=== PATIENT | male | born 1960 | race Caucasian/White ===

== ENCOUNTER 2016-11-11 11:05 | Inpatient (IN) | payer MEDICARE, OTHER ==
[~2016-11-11] VITALS: Ht 180.3 cm; Wt 76.3 kg
[2016-11-11] VITALS (7 sets, daily range): BP systolic 145–174; BP diastolic 95–114; PULSE 90–106; RESP 12–20; O2SAT 97–98
[~2016-11-11 11:05] MED LIST: HYDR1TAB; SERT25TA2; [UNRECOGNIZED DRUG - OTHER]
--- NOTE | 2016-11-11 11:05 | ED.REPORT ---
HPI-General Illness Date of Service Nov 11, 2016 ED Provider: The patient is a 56 year old male with an unknown history who was brought to the emergency department by EMS for confusion. It is unclear what time his symptoms exactly began. His roommate called EMS due to the patients mental status decline. The patient was somewhat combative at home. When medics arrived the patient had difficulty following directions and was unable to get dressed without instruction. Her states that over the last few days he has developed sores and bruises diffusely over his body. He denies any pain. His blood sugar was 153 for medics. He denies history of medical problems but he is taking medications for hypertension and hypercholesteremia. He denies using meth, heroin or any other illicit drugs. Nursing Notes Stated Complaint: CONFUSION Nursing Notes Reviewed: Yes Allergies: Coded Allergies: iodine (Verified Allergy, Unknown, 06/18/09) Scheduled Buspirone (Buspirone) 30 Mg Tablet 30 MG PO BID Citalopram (Citalopram) 40 Mg Tablet 60 MG PO DAILY Fluticasone/Salmeterol (Advair 500-50 Diskus) 1 Each Disk.w.dev 1 PUFF INHALATION BID Gabapentin (Gabapentin) 600 Mg Tablet 300-900 MG PO TID Lisinopril (Lisinopril) 20 Mg Tablet 20 MG PO HS Lovastatin (Lovastatin) 40 Mg Tablet 80 MG PO HS Metoprolol Succinate ER (Metoprolol Succinate ER) 25 Mg Tab.er.24h 25 MG PO DAILY Quetiapine Fumarate (Quetiapine Fumarate) 200 Mg Tablet 200 MG PO HS Scheduled PRN Albuterol HFA (Proair HFA) 8.5 Gm Hfa.aer.ad 1-2 PUFFS INHALATION QID PRN PRN For Shortness of Breath General Time Seen by MD: 11:05 Chief Complaint Altered mental status Hx Obtained From: Patient, EMS Arrived By: Ambulance Sudden in Onset?: Yes Onset Occurred: Onset unknown Symptom Duration: Since onset Severity: Current: No pain currently Severity: Maximum: No pain NIH Stroke Scale Level of Consciousness: Alert and responsive (0) Ask Month & Age: 0 questions right (2) Open/Close Eyes/Hand Wax Pattern Repairer: Performs both tasks (0) Horizontal EO Movements: None (0) Visual Gipson: No visual loss (0) Facial Palsy: Normal symmetry (0) Right Arm Motor Drift (10s): Drift, not touch bed (1) Left Arm Motor Drift (10s): No drift 10 sec (0) Right Leg Motor Drift (5s): No drift 5 sec (0) Left Leg Motor Drift (5s): No drift 5 sec (0) Limb Ataxia FNF/Heel-Madden: Ataxia in 1 limb (1) Sensation (Arms/Legs/Face): Pinprick less sharp (1) (less sharp on left face ) Language Aphasia: Loss fluency ID matls (1) Dysarthria: No dysarthria, normal (0) Extinction/Inattention: No exctinct/inattent (0) NIHSS Score: 6 Time NIHSS Performed: 14:17 Date NIHSS Performed: Nov 11, 2016 Past Medical History Past Medical History Hypertension Hypercholesteremia Depression Anxiety Stroke Family History Noncontributory Smoking History Current Every Day Smoker Social History Lives with a roommate Alcohol Use: In recovery Drug Use: Denies drug use Other Social History: Local resident Ambulatory Status Independent Review of Systems Full Review of Systems Skin: Reports Bruising, Reports Rash Neurologic: Reports: Confusion Psychiatric: Reports: Change mental status Complete sys rev & neg: except as marked. Physical Exam Vital Signs Vital Signs Date Time Temp Pulse Resp B/P Pulse Ox O2 Delivery O2 Flow Rate FiO2 11/11/16 13:53 106 17 152/114 98 Room Air 11/11/16 12:48 94 12 157/97 98 Room Air 11/11/16 11:07 36.6 102 19 153/113 98 Room Air Initial VS: Reviewed ENT: Mucous membranes moist, Conjunctiva normal, No scleral icterus Neck: Supple, Non-tender, Full range of motion Respiratory: Breath sounds normal, Clear to auscultation, No respiratory distress Cardiovascular: Regular rate & rhythm, Heart sounds normal, Intact distal pulses Abdomen / GI: Soft, Non-tender, No guarding, No rebound, No distention Lymphatic: No lymphadenopathy Extremities: Vascular intact, Neuro intact, No swelling, No tenderness General/Constitutional: Awake, Alert Head / Eyes: Normocephalic, PERRL, EOMI Contusion to his right upper frontal region. Skin: Warm Extensive ecchymosis on extremities, forehead, chest, and legs of varying ages. There is a lot of excoriations and eschar of variant ages. Mental Status: Positive: Disoriented to person, Disoriented to time SEE NIH STROKE SCALE ABOVE, score of 6. Interpretation & Diagnostics Interpretation & Diagnostics: Urine drug screen: positive for opiates and oxycodone Urine dip: positive for protein, ketones, bilirubin, and blood. Lab Results Interpretation Result Diagram: 11/11/16 1230 11/11/16 1230 Test 11/11/16 11:50 11/11/16 12:30 Urine Color Dark yellow (YELLOW) Urine Appearance Hazy (CLEAR,HAZY) Urine pH 6.5 (5.0-8.0) Urine Specific Hull 1.020 (1.003-1.035) Urine Protein 100mg/dL (NEG,TRACE) Urine Glucose (UA) Negativemg/dL (NEGATIVE) Urine Ketones 40mg/dL (NEGATIVE) Urine Occult Blood Large (NEGATIVE) Urine Nitrite Negative (NEGATIVE) Urine Bilirubin Negative (NEGATIVE) Urine Ictotest Negative (Negative) Urine Urobilinogen Normalmg/dL (NORMAL) Urine Leukocyte Esterase Negative (NEGATIVE) Urine RBC 0-2/hpf (0-2) Urine WBC 0-5/hpf (0-5) Urine Epithelial Cells Occasional/hpf (NONE-MOD) Urine Crystals None seen (NONE SEEN) Urine Bacteria None/hpf (NONE-FEW) Urine Hyaline Casts Occasional/lpf (NONE) Urine Granular Casts Occasional (NONE SEEN) Urine Waxy Casts None seen (NONE SEEN) Urine Red Blood Cell Casts None seen (NONE SEEN) Urine White Blood Cell Casts None seen (NONE SEEN) Urine Mucus Present (None Seen) Urine Trichomonas None seen (NONE SEEN) Urine Yeast None (NONE SEEN) Urinalysis Comment None Urine Culture Reflexed Not indicated White Blood Count 15.8th/mm3 (3.8-10.1) Red Blood Count 4.51mil/mm3 (4.40-5.80) Hemoglobin 13.5g/dL (13.8-17.2) Hematocrit 39.7% (41.0-50.0) Mean Corpuscular Volume 88.0fL (81-100) Mean Corpuscular Hemoglobin 29.9pg (27.0-35.0) Mean Corpuscular Hemoglobin Concent 34.0% (32.0-37.0) Red Cell Distribution Width 14.0% (12.3-15.4) Platelet Count 292bil/L (150-400) Neutrophils (%) (Auto) 82.9% (40-74) Lymphocytes (%) (Auto) 8.2% (14-46) Monocytes (%) (Auto) 8.4% (4-12) Eosinophils (%) (Auto) 0% (0-5) Basophils (%) (Auto) 0.1% (0-3) Prothrombin Time 11.9sec (8.1-12.5) Prothromb Time International Ratio 1.11ratio Sodium Level 140mEq/L (134-144) Potassium Level 4.1mEq/L (3.5-5.2) Chloride Level 97mEq/L (97-108) Carbon Dioxide Level 22mmol/L (18-29) Blood Urea Nitrogen 58mg/dL (6-24) Creatinine 1.14mg/dL (0.76-1.27) Estimat Glomerular Filtration Rate 70mL/min (>59) Glucose Level 121mg/dL (60-99) Lactic Acid Level 1.6mmol/L (0.4-2.0) Calcium Level 9.7mg/dL (8.5-10.1) Magnesium Level 2.6mg/dL (1.6-2.6) Total Bilirubin 0.9mg/dL (0.0-1.2) Aspartate Amino Transf (AST/SGOT) 281U/L (0-50) Alanine Aminotransferase (ALT/SGPT) 386U/L (0-44) Alkaline Phosphatase 100U/L (25-150) Total Protein 7.9g/dL (6.4-8.4) Albumin 4.3g/dL (3.4-5.0) Salicylates Level < 3.0ug/mL (30-250) Acetaminophen Level < 15.0ug/mL Rx (10-25) Alcohols < 10mg/dL (0-10) ECG Interpretation ECG Interpretation: Sinus rhythm with a rate of 97 Nonspecific T abnormalities, anterior leads Time: 11:15 Interpreted by: ED physician X-Ray Chest Interpretation Chest Xray Interpretation: IMPRESSION: Right upper lobe pulmonary nodule. Recommend noncontrast chest CT scan when clinically feasible. Dictated by: Sai Vines RRA Interpreted: Sana العلي MD on 11/11/2016 at 11:54 Interpretation / Wet Read by: Interpret - Radiologist CT Head Interpretation IMPRESSION: 1. New subacute left frontal and right temporoparietal lobe infarcts. No change in chronic left occipital lobe infarct. 2. No acute intracranial abnormality. Dictated by: Xin Crouch M.D. on 11/11/2016 at 11:33 Study: Head CT no contrast Interpretation / Wet Read by: Interpret - ED physician Re-Eval/Medical Decision Med Decision/Clinical Course I considered TPA on this patient but did not think that he is a reasonable candidate because of the fact that we have no sense at all when the onset of his condition was and we have a CT scan that shows a subacute infarct which implies at least many hours if not days since the infarct. He also has multiple contusions all throughout his body in varying stages of healing so underlying trauma is not completely excluded either. Additionally, I do not think that stroke is necessarily the only thing at play here. I think further evaluation will be required to elucidate the complete diagnosis. I do not think it is appropriate to administer TPA in this gentleman Source of Hx: Old records, EMS Time of Eval: 13:00 Re-Evaluation/Progress Note: Discussed plan for admission. Time of Eval: 13:40 Re-Evaluation/Progress Note: Hospitalist is at bedside examining the patient. Time of Eval: 14:16 Re-Evaluation/Progress Note: Rechecked the patient. Consultation : Referral / Consult Name: Rafaela Resendiz DO Consulted With: Hospitalist Call Returned at: 14:28 Animal Stunner: Will see patient, Agrees with eval, Agrees with plan, Accepts admit Counseled Regarding: Diagnosis, Lab results, Need for admission Discharge & Departure Primary Impression: Altered mental status Altered mental status type: unspecified Qualified Code: R41.82 - Altered mental status, unspecified Additional Impression: CVA (cerebral vascular accident) CVA mechanism: unspecified Qualified Code: I63.9 - Cerebral infarction, unspecified Disposition: ADMITTED TO HOSPITAL Discharge Condition All VS Reviewed: Yes Condition: Stable Referrals: Shane Gomez MD (PCP) Barrettibtheodore Attestation Portions of this note were transcribed by Gale Patel. I, Dr. Sauer personally performed the history, physical exam and medical decision-making; I reviewed and confirmed the accuracy of the information in the transcribed note. Signed by: Kannan Santos, 11/11/2016 at 1431. copies to: Shane Gomez MD, Kirk H MD Nov 11, 2016 11:05 Gale Patel Nov 11, 2016 11:12
--- NOTE | 2016-11-11 11:40 | DRSVH ---
PROCEDURE: CT BRAIN WITHOUT CONTRAST ([id number]) INDICATIONS: altered LOC TECHNIQUE: Noncontrast 4.5 mm thick angled axial sections acquired from the foramen magnum to the vertex, with c oronal reformats. COMPARISON: [facility], CT, BRAIN W/O CONTRAST, 06/14/2009, 15:16. [facility] [place], CT, BRAIN W/O CONTRAST, 03/25/2008, 9:19. [facility], MR, BRAIN W/O CONTRAST, 04/06/20 14, 15:32. FINDINGS: Image quality: Degraded by motion artifact CSF spaces: Basal cisterns are patent. No extra-axial fluid collections. The ventricles are symmet beth in size and shape. Brain: No intracranial bleeds or masses. There is a 40 mm diameter low-density focus within the lef t posterolateral frontal lobe. Within the right temporoparietal lobe, there is a 60 mm diameter low-d ensity focus. No change in chronic small infarct within the left medial occipital lobe. There is cere bral volume loss for age, with resultant ventricular and sulcal prominence. There are periventricula r and deep white matter chronic small vessel ischemic changes. There is intracranial internal caroti d artery atherosclerosis. Skull and face: Calvarium and visualized facial bones appear intact, without suspicious lesions. Sinuses: Visualized sinuses and mastoids are clear. IMPRESSION: 1. New subacute left frontal and right temporoparietal lobe infarcts. No change in chronic left occip ital lobe infarct. 2. No acute intracranial abnormality. Dictated by: Xin Crouch M.D. on 11/11/2016 at 11:33 Approved by: Xin Crouch M.D. on 11/11/2016 at 11:39
--- NOTE | 2016-11-11 11:55 | DRSVH ---
PROCEDURE: X-RAY CHEST ONE VIEW, PORTABLE ([id number]) INDICATIONS: dec LOC TECHNIQUE: One view of the chest was acquired. COMPARISON: [facility], CR, XR CHEST 2V AP/PA AND LAT, 04/23/2016, 12:54 PM. FINDINGS: Surgical changes and devices: None. Lungs and pleura: 2.5 cm right upper lobe nodule is present otherwise lungs are clear. Mediastinum: Mediastinal contours appear normal. Heart size is normal. Bones and chest wall: No suspicious bony lesions. Overlying soft tissues appear unremarkable. IMPRESSION: Right upper lobe pulmonary nodule. Recommend noncontrast chest CT scan when clinically f easible. Dictated by: Sai Vines RRA Interpreted: Sana العلي MD on 11/11/2016 at 11:54 Transcribed by: RAD on 11/11/2016 at 11:55 Approved by: Sana العلي MD, PhD on 11/11/2016 at 16:14
[2016-11-11 12:05] LABS: APPEARANCE,URINE HAZY (CLEAR,HAZY); COLOR,URINE DARK YELLOW (YELLOW); OCCULT BLOOD,URINE LARGE (NEGATIVE); PH,URINE 6.5 (5.0-8.0)
[2016-11-11 12:06] LABS: UROBILINOGEN,URINE NORMAL (NORMAL)
[2016-11-11 12:15] LABS: ICTOTEST,URINE NEGATIVE (Negative)
[2016-11-11 12:46] LABS: BASOPHILS % (AUTO) 0.1 % (0-3); EOSINOPHILS % (AUTO) 0 % (0-5); MONOCYTES % (AUTO) 8.4 % (4-12); Mean Corpuscular Hemoglobin 29.9 pg (27.0-35.0); NEUTROPHILS % (AUTO) 82.9 % (40-74); Platelet Count 292 bil/L (150-400)
[2016-11-11 13:00] LABS: INR 1.11 ratio
[2016-11-11 13:23] LABS: Magnesium 2.6 mg/dL (1.6-2.6)
[2016-11-11] MEDS ORDERED: BUSP30TA2 PO (14:08)
[2016-11-11] MEDS ORDERED: LISI-567 PO (14:08)
[2016-11-11] MEDS ORDERED: GABA600T2 PO (14:08)
[2016-11-11] MEDS ORDERED: FLUT1DIS5 INHALATION (14:08)
[2016-11-11] MEDS ORDERED: METO25TA99 PO (14:08)
[2016-11-11] MEDS ORDERED: QUET200T58 PO (14:08)
[2016-11-11] MEDS ORDERED: LOVA40TA PO (14:08)
[2016-11-11] MEDS ORDERED: CITA40TA13 PO (14:08)
[2016-11-11] MEDS ORDERED: ALBU8.5H2 INHALATION (14:08)
[2016-11-11] MEDS ORDERED: 0.9% Sodium Chloride 1,000 ML IV SCH (14:23)
[2016-11-11] MEDS ORDERED: Polyethylene Glycol (PEG) 17 Gm Powder PO PRN (14:25)
[2016-11-11] MEDS ORDERED: Alum-Mag Hydrox-Simeth 30 mL Suspension PO PRN (14:25)
[2016-11-11] MEDS ORDERED: Albuterol HFA 60 Puff 8 Gm Inhaler INHALATION PRN (14:35)
--- NOTE | 2016-11-11 14:42 | PCM.HPMED ---
Subjective Date of Service Nov 11, 2016 Primary Provider: Admitting Physician: Rafaela Resendiz DO Primary Care Physician: Shane Gomez MD Attending Physician: Rafaela Resendiz DO Chief Complaint: Confusion, falls History of Present Illness: The patient is a 56 year old male with past medical history of hypertension, hyperlipidemia, arthritis, previous CVA, chronic pain syndrome, COPD who was brought to the emergency department by EMS for confusion. It is unclear what time his symptoms exactly began. His roommate called EMS due to the patients mental status decline. The patient was somewhat combative at home. EMS also had difficulty with his friend not letting them come in. When medics arrived the patient had difficulty following directions and was unable to get dressed without instruction. Her states that over the last few days he has developed sores and bruises diffusely over his body. He denies any pain. His blood sugar was 153 for medics. He denies history of medical problems but he is taking medications for hypertension and hypercholesteremia. He denies using meth, heroin or any other illicit drugs. He does admit to taking a xanax pill he received from a friend. States it made him feel strange. Patient states his roommate and friend does smoke marijuana. In the ER chest x-ray showed right upper lobe pulmonary nodule. CT of head showed right frontal and right temporal subacute infarcts and an older chronic left occipital lesion. Urine drug screen showed benzo, opiates. I will call serum levels were within normal limits. Serum cell cycle 8, Tylenol were within normal. Urine dip stick is positive for protein, ketones, bilirubin, and blood. His white count was elevated at 15.8 AST 21 ALP 386. PUD and sharply elevated at 38 creatinine is 1.14. In the room patient is acting mildly agitated, and at times confused. It is unknown what his baseline is like. He has several scratch huggins all over his body. Healing ecchymosis on both anterior tibia. He is able to talk but at times stuttering speech. He appears to be having difficulty recalling names, dates. He also appeared to be frustrated with his inability to find words at times. He states he has not eaten in a couple of days and also has not taken his home meds and a couple of days. She thinks the reason he is following up with Xanax he took 2 weeks ago. He also has AT home that includes 3 bulldogs and 1 cat scratch at them for patient. He is disabled and . Patient is admitted to the [facility] team for management of acute stroke likely cardioembolic that he is past TPA due to unknown onset. Review of Systems: The review of systems is negative for urinary symptoms, GI symptoms, dyspnea, chest pain, fevers and chills. All other review of symptoms negative except as stated in history of present illness. Allergies Coded Allergies: iodine (Verified Allergy, Unknown, 06/18/09) Home Medications Home medications include lisinopril, metoprolol, lovastatin, citalopram, BuSpar , gabapentin, Advair, pro-air PMH CAD, hyperlipidemia, hypertension, seizures, DJD, brain lesion, CVA, tobacco abuse Surgical History Patient denies ever having any surgical procedures. Family History Pertinent for dad and mom both in good health. However patient is not a good historian. Social History Occupation: disabled Hx Alcohol Use: No Hx Substance Use: No Hx Tobacco Use: Yes Smoking Status: Current Every Day Smoker (Objective today) Living Arrangement: with Friends/Roommate Spiritual Support Unknown Exam Vital Signs Vital Sign - Last Date Time Temp Pulse Resp B/P Pulse Ox O2 Delivery O2 Flow Rate FiO2 11/11/16 13:53 106 17 152/114 98 Room Air 11/11/16 11:07 36.6 Exam Gen.: Patient appears mildly agitated but following commands. HEENT: Pupils are equal equal and reactive to light, full dentition Neck: Trachea is central no JVD Heart: Regular rate and rhythm no S3-S4 murmurs Lungs mild wheezing is noted Abdomen: Nontender nondistended bowel sounds are present Skin: Multiple areas of erythema and scratches non-purulent, 2 large areas of recent injuries that are in healing stages over anterior tibia bilaterally. He appears to have some folliculitis on the back as well Neuro: Hyperreflexia in both patellar tendons, patient is unable to do Romberg's , assigz-ng-[id number]. Babinski's downgoing, CN II through 12 are otherwise unremarkable. MSK: Decreased strength in upper right extremity Psych: Positive for mild anxiety as above Lab and Diagnostics Result Diagram: 11/11/16 1230 11/11/16 1230 X-Rays, CTs and MRIs Chest Xray Interpretation: IMPRESSION: Right upper lobe pulmonary nodule. Recommend noncontrast chest CT scan when clinically feasible. Dictated by: Sai Vines RRA Interpreted: Sana العلي MD on 11/11/2016 at 11:54 Interpretation / Wet Read by: Interpret - Radiologist CT Head Interpretation IMPRESSION: 1. New subacute left frontal and right temporoparietal lobe infarcts. No change in chronic left occipital lobe infarct. 2. No acute intracranial abnormality. Dictated by: Xin Crouch M.D. on 11/11/2016 at 11:33 Study: Head CT no contrast Interpretation / Wet Read by: Interpret - ED physician Assessment & Plan This is a 56-year-old gentleman with past medical history of CAD, hypertension, hyperlipidemia, seizures, previous CVA admitted due to concern for subacute stroke. Assessment #1 Subacute stroke: As evidenced by CT scan in the ER. Unknown duration of onset felt to be passed TPA. The plan to obtain every 4 hours neuro checks, fall precautions Echocardiogram, carotid ultrasound, MRA stroke protocol will be done with and without cardiology is consulted and they will see the patient: We appreciate the recommendations. [facility] neuro is contacted regarding the patient and they felt they do not have much else to add except that we should Have cardiology in the loop in case TTE does not show any evidence of emboli and patient needs a LUDA as his stroke presentation his right and left(may likely be cardioembolic. Rectal aspirin suppository until patient is cleared by speech and swallow evaluation Nothing by mouth diet D5 half normal saline running at 100 mL per hour We will plan to do very conservative hydralazine 10 mg every 6 hours when necessary with parameters of SBP less than or equal to 100 PT/OT/speech therapy Social work consult Chronic problems: Hypertension: We will hold by mouth medications until speech clears him. Hydralazine as above. May consider labetalol if his heart rate continues to support it. CAD: Lipid panel is ordered, he is already on lisinopril, metoprolol, lovastatin at home. He is unknown if he was ever on aspirin. Agitation: This may be due to his stroke R it could be some psychiatric history. We will review his records once we receive them. Disposition: Patient will be evaluated by physical therapy, speech therapy tomorrow a.m. plan to follow the recommendations as well as cardiology studies further decide a plan for his discharge. GI Prophylaxis: Proton Pump Inhibitor VTE Prophylaxis Indicated: Contraindicated VTE Prophylaxis: SCDs Resuscitation Status: CPR: Attempt Resuscitation Rafaela Resendiz DO Nov 11, 2016 14:42
[2016-11-11] MEDS ORDERED: hydrALAZINE 20 mg/mL Inj IV PRN (14:45)
[2016-11-11] MEDS: Albuterol 2.5 mg/3 mL Inhalation Solution NEB SCH ×3 (14:53→20:00)
[2016-11-11] MEDS ORDERED: OXYC-474 PO (15:02)
--- NOTE | 2016-11-11 15:05 | NUR ---
Report from ER Received report from PORT SURVEYORBHARGAVI Nelson.
--- NOTE | 2016-11-11 15:40 | NUR ---
Arrival to Floor Patient arrived to room via wheelchair from ER, was able to stand and walk to bed, oriented to room.
[2016-11-11] MEDS ORDERED: Heparin 5,000 Unit/mL Inj SUBQ SCH (16:30)
--- NOTE | 2016-11-11 17:15 | NUR ---
Order Clarification Contacted Dr. Resendiz with the following cook page: Need order clarification on IVF, you have ordered NS and also D5 1/2 NS, please advise on which to run. Also, is Aspirin suppository still needed, as it appears MRI was cancelled. Please advise. Thank you. Lily DELGADO ext [phone]
[2016-11-11] MEDS: Dextrose 5% 0.45% NaCl 1,000 ML IV SCH (17:46)
--- NOTE | 2016-11-11 17:55 | NUR ---
Transfer to US/MRI Patient now off unit, transferred to US and then to MRI.
--- NOTE | 2016-11-11 19:00 | NUR ---
MRI returned MRI per report unable to tolerate lying still unsuccessful
--- NOTE | 2016-11-11 19:14 | DRSVH ---
PROCEDURE: US BILATERAL DUPLEX DOPPLER IMAGING OF THE CAROTIDS ([id number]) INDICATIONS: stroke symptoms TECHNIQUE: Color and pulse Doppler interrogation was performed of both carotid systems, with image documentation and velocity measurements. COMPARISON: None. FINDINGS: All stenosis calculations are based on NASCET criteria. Right side: Brachial blood pressure: 157/97 mm Hg. Common carotid artery peak systolic velocity: 82 cm/sec. Internal carotid artery peak systolic velocity: 74 cm/sec. Internal carotid artery end diastolic velocity: 23 cm/sec. External carotid artery peak systolic velocity: 126 cm/sec. ICA/CCA peak systolic ratio: 0.90. Chowdhury scale imaging description: Scattered calcified plaque Percent internal carotid artery stenosis: Less than 50%. Vertebral artery: Flow direction is antegrade. Left side: Brachial blood pressure: 154/100 mm Hg. Common carotid artery peak systolic velocity: 86 cm/sec. Internal carotid artery peak systolic velocity: 72 cm/sec. Internal carotid artery end diastolic velocity: 27 cm/sec. External carotid artery peak systolic velocity: 175 cm/sec. ICA/CCA peak systolic ratio: 0.83. Chowdhury scale imaging description: Calcific plaque at the bifurcation Percent internal carotid artery stenosis: Less than 50%. Vertebral artery: Flow direction is antegrade. IMPRESSION: Bilateral less than 50% ICA stenoses. Dictated by: Ishan Patel M.D. on 11/11/2016 at 19:12 Approved by: Ishan Patel M.D. on 11/11/2016 at 19:13
--- NOTE | 2016-11-11 19:24 | NUR ---
DIET/Waiver Patient very anxious and adamant about having something to drink, " or Im leaving" performed swallow screen which he passed but insists i=on thin liquid so he signed waiver to have diet against advice d/t severe ataxia and peripheral vision problems had second RN witness attempted signature placed in chart
[2016-11-11] MEDS ORDERED: Fluticasone-Salmeterol 500-50 Inhaler INHALATION SCH (20:30)
[2016-11-11 20:35] LABS: TROPONIN T 0.433 ug/L (0.0-0.011)
[2016-11-12] VITALS (12 sets, daily range): BP systolic 129–185; BP diastolic 86–101; PULSE 83–99; RESP 14–24; O2SAT 94–99
[2016-11-12 01:24] LABS: TROPONIN T 0.481 ug/L (0.0-0.011)
--- NOTE | 2016-11-12 01:30 | NUR ---
Critical Labs Patients CKMB slightly decreased but trop continue to rise No c/o any pain issues, MD notified aware wctm
--- NOTE | 2016-11-12 01:32 | PCM.PNMED ---
Subjective Date of Service Nov 12, 2016 Subjective Nurse call to reported elevated troponin. Patient continues to deny any angina or equivalent compliant. Recommend to nurse to report if patient develops any symptoms and will consider starting Heparin Estuardo Hennessy MD Nov 12, 2016 01:32
[2016-11-12] MEDS: Dextrose 5% 0.45% NaCl 1,000 ML IV SCH (03:47)
[2016-11-12] MEDS: Ondansetron 2 mg/mL 2 mL Inj IVPUSH PRN ×2 (05:33→07:31)
[2016-11-12] MEDS: Albuterol 2.5 mg/3 mL Inhalation Solution NEB SCH ×4 (06:26→20:00)
[2016-11-12] MEDS: Pantoprazole 4 mg/mL 10 mL Inj IVPUSH SCH (07:31)
--- NOTE | 2016-11-12 08:28 | NUR ---
Home Meds/PO Dr. Resendiz at bedside, she stated after speech therapy assesses the patient she would like to resume patient's home meds and also stated it would be ok to change aspirin suppository to PO if PO is recommended by speech. Dr. Resendiz also stated she would like to try the MRI again today and would prescribe something for patient to take prior to the MRI in order to remain calm and relaxed for the MRI. I attempted to contact speech therapy to find out where patient may be on their schedule, but was only able to leave a message at this time.
[2016-11-12] MEDS ORDERED: Acetaminophen IV 1,000 MG in IV Premix 1 EACH IV ONE (08:35)
--- NOTE | 2016-11-12 08:56 | NUR ---
Evaluation completed. Please go to "Notes" then click on "Assessments and Notes" (bottom left corner of screen). Then select appropriate discipline tab on top of screen.
[2016-11-12] MEDS: 0.9% Sodium Chloride 1,000 ML IV SCH ×2 (09:28→20:13)
[2016-11-12] MEDS: Codeine-APAP 30-300 mg Tablet PO PRN ×2 (09:28→20:21)
[2016-11-12 09:34] LABS: BASOPHILS % (AUTO) 0.2 % (0-3); EOSINOPHILS % (AUTO) 0.3 % (0-5); MONOCYTES % (AUTO) 7.2 % (4-12); Mean Corpuscular Volume 87.6 fL (81-100); NEUTROPHILS % (AUTO) 79.1 % (40-74); Platelet Count 257 bil/L (150-400)
--- NOTE | 2016-11-12 09:54 | PCM.PNMED ---
Subjective Date of Service Nov 12, 2016 Subjective Patient is seen and examined. He signed a waiver last night and started drinking fluids per staff. He was too agitated for the MRI stroke protocol last night and thus, has not finished it. He appears less agitated today. He is more lucid and having less trouble recalling names. He c/o back pain. Exam Vital Signs Vital Sign - Last Date Time Temp Pulse Resp B/P Pulse Ox O2 Delivery O2 Flow Rate FiO2 11/12/16 08:30 92 11/12/16 06:27 24 94 Room Air 11/12/16 05:25 36.4 129/86 Intake and Output 11/11/16 11/11/16 11/12/16 Cumulative From/Thru 15:00 23:00 07:00 11/11/16 11:07 - 11/12/16 06:12 Intake Total 158 ml 2386 ml 2544 ml Output Total 275 ml 400 ml 675 ml Balance -117 ml 1986 ml 1869 ml Intake Oral 0 ml 1320 ml 1320 ml IV Total 158 ml 1066 ml 1224 ml Output Urine Total 275 ml 400 ml 675 ml # Voids 3 2 5 # Bowel Movements 3 0 3 Exam General: Mildly distressed HEENT: Poor dentition Heart: RRR, no s3/s4 sounds Lungs: Wheezing noted over lung lobes Abdomen: Flat, nontender Extremities: Without edema Neurological: Patient still has trouble doing yefnqg-mk-lkdg test however he did say he does not know where his eyeglasses were. Better name/location recalled today. Babinski's is still within normal. Hyperreflexia in both patellar tendons. His vision is affected as before but otherwise CN II through XII are grossly normal. Musculoskeletal: Strength in right upper extremity is reduced. Psych: Mild agitation noted, patient is redirectable however IVs and Medications Medications Reviewed: Medications were reviewed in detail Lab and Diagnostics Result Diagram: 11/12/16 0855 11/11/16 1230 X-Rays, CTs and MRIs Chest Xray Interpretation: IMPRESSION: Right upper lobe pulmonary nodule. Recommend noncontrast chest CT scan when clinically feasible. Dictated by: Sai RODRIGUEZ Interpreted: Sana العلي MD on 11/11/2016 at 11:54 Interpretation / Wet Read by: Interpret - Radiologist CT Head Interpretation IMPRESSION: 1. New subacute left frontal and right temporoparietal lobe infarcts. No change in chronic left occipital lobe infarct. 2. No acute intracranial abnormality. Dictated by: Xin Crouch M.D. on 11/11/2016 at 11:33 Study: Head CT no contrast Interpretation / Wet Read by: Interpret - ED physician Cardiac Echo Impressions [facility] [place] [address] Patient Name: RAJ OSEGUERA MR#: [id number] Location: [facility] [place] Ordering Phys: Rafaela Resendiz DO Date of Service: 11/12/16 1446 [facility] [address] [place] [address] Echocardiogram Report Name: RAJ OSEGUERA WStudy Date: 11/12/2016 Height: 71 in Hospital Exam Location: [facility] Weight: 168 lb Gender: Male BSA: 2.0 m2 : 1960 Age: 56 yrs BP: 129/86 mmHg Reason For Study: STROKE Ordering Physician: HOSPITALIST SVHPerformed By: Tracey Vazquez Referring Physician: Dr. Shane Gomez Interpretation Summary The left ventricle is normal in size. Left ventricular systolic function is normal without focal wall motion abnormalities. The ejection fraction is estimated to be 60-65%. Assessment of diastolic parameters indicates a relaxation abnormality of the left ventricle, consistent with normal filling pressures. The right ventricle is normal in size and function. Pulmonary artery pressures cannot be estimated because of the lack of a measurable TR jet velocity. Both atria are normal in size. Injection of contrast documented an interatrial shunt. There is mild to moderate mitral regurgitation. There is mild to moderate aortic regurgitation. There is no other significant valvular heart disease. The aortic root is mildly dilated. Procedure: A two-dimensional transthoracic echocardiogram with color flow and Doppler was performed. The study quality was technically adequate. Comparison is made with the echocardiogram of 10-15-2008. Bubble study is performed. The patient was in normal sinus rhythm during the exam. Left Ventricle: The left ventricle is normal in size. There is mild concentric left ventricular hypertrophy. Left ventricular systolic function is normal without focal wall motion abnormalities. The ejection fraction is estimated to be 60-65%. Assessment of diastolic parameters indicates a relaxation abnormality of the left ventricle, consistent with normal filling pressures. Right Ventricle: The right ventricle is normal in size and function. Atria: Both atria are normal in size. Injection of contrast documented an interatrial shunt. Mitral Valve: The mitral valve leaflets appear normal. There is no evidence of stenosis, fluttering, or prolapse. There is mild to moderate mitral regurgitation. Aortic Valve: The aortic valve is not well visualized. The aortic valve opens well. There is mild to moderate aortic regurgitation. Tricuspid Valve: The tricuspid valve leaflets are thin and pliable. There is a trace or physiologic amount of tricuspid regurgitation. Pulmonary artery pressures cannot be estimated because of the lack of a measurable TR jet velocity. Pulmonic Valve: The pulmonic valve is not well visualized. There is no pulmonic valvular regurgitation. There is no other significant valvular heart disease. Great Vessels: The aortic root is mildly dilated. The ascending aorta could not be visualized. The pulmonary is not well visualized. The IVC is of normal diameter and collapses greater than 50% with a sniff. This suggests a low right atrial pressure of 3 mm Hg. Pericardium/ Pleura There is no pericardial effusion. There is no pleural effusion. MMode/2D Measurements & Calculations LVIDd: 4.7 cm LA dimension: 3.0 cm RA long axis LVOT diam: 2.1 cm LVIDs: 3.2 cm AoV Opening FS: 30.7 % LA A2 area: 19.3 cm RA area IVSd: 0.96 cm LA A4 area: 17.6 cm Ao root diam LVPWd: 1.1 cm LA length (vol) : 17.4 cm RA vol Ao Arch Diam (Prox LA vol: 55.4 ml : 50.4 ml Trans): 2.9 cm LA vol index RA : 25.7 mm/ RVDd major IVC diam: 1.9 cm : 7.9 cm LV lee. diameter/BSA LV sys. diameter/BSA RVD2 (mid) (cm/m^2): 2.4 (cm/m^2): 1.7 : 2.6 cm Doppler Measurements & Calculations Ao V2 max MV E max morales MV E/A: 0.87 PA V2 max : 130.2 cm/sec : 53.4 cm/sec Med Peak E' Morales : 85.5 cm/sec Ao max P.8 mmHgMV A max morales PA mean PG Ao mean PG : 61.4 cm/sec E/E' med: 7.2 MV P1/2t: 95.3 msec Lat Peak E' Morales PA Accel Time LVOT Max Morales MR ERO: 0.14 cm2 : 0.11 sec : 95.4 cm/sec E/E' lat: 5.0 RODERICK(I,D): 2.9 cm E/e' average: 6.1 sev ratio: 0.88 Pulm A Revs Dur AI P1/2t : 378.9 msec MV A dur: 0.12 sec AI dec slope : 370.2 cm/s2c MV P1/2t max morales Ao V2 mean LV V1 max PG MR flow rate : 90.7 cm/sec : 82.6 cm3/sec MVA(P1/2t): 2.3 cm2Ao V2 VTI: 18.8 cm LV V1 VTI: 16.5 cm MR PISA radius RODERICK(V,D): 2.4 cm2 PA V2 mean RODERICK indexed to BSA Pulm A Revs Dur - MV : 53.3 cm/sec (cm^2/m^2): 1.5 A Dur: 0.00 msec Reading Physician:PM Assessment & Plan This is a 56-year-old gentleman with past medical history of CAD, hypertension, hyperlipidemia, seizures, previous CVA admitted due to concern for subacute stroke. Assessment #1 Subacute stroke: As evidenced by CT scan in the ER. Unknown duration of onset felt to be passed TPA. --The plan to obtain every 4 hours neuro checks, fall precautions -- Echocardiogram did not reveal acute findings , carotid ultrasound showed less than 50% stenosis, MRA stroke protocol will be attempted again today. -- cardiology is consulted and they will see the patient: We appreciate the recommendations. -- [facility] neuro is contacted regarding the patient and they felt they do not have much else to add except that we should Have cardiology in the loop in case TTE does not show any evidence of emboli and patient needs a LUDA as his stroke presentation his right and left(may likely be cardioembolic. -- Patient is advanced to some PO medications today as he passed the swallow test -- Diet is advanced today -- Normal saline 70 mL/h -- We will plan to do very conservative hydralazine 10 mg every 6 hours when necessary with parameters of SBP less than or equal to 100 -- PT/OT/speech therapy -- Social work consult -- Daily aspirin by mouth 325 mg Chronic problems: Hypertension: We will hold by mouth medications until speech clears him. Hydralazine as above. May consider labetalol if his heart rate continues to support it. Plan to restart metoprolol tomorrow CAD: Lipid panel is ordered, he is already on lisinopril, metoprolol, lovastatin at home. He is unknown if he was ever on aspirin. Restart lovastatin. Plan to restart metoprolol tomorrow. Agitation: This may be due to his stroke R it could be some psychiatric history. We will review his records once we receive them. Depression: Restart citalopram today. Disposition: Patient will be evaluated by physical therapy, speech therapy tomorrow a.m. plan to follow the recommendations as well as cardiology studies further decide a plan for his discharge. GI Prophylaxis: Proton Pump Inhibitor VTE Prophylaxis: SCDs VTE Mechanical Devices: Intermittant Pneumatic CD Resuscitation Status: CPR: Attempt Resuscitation Rafaela Resendiz DO Nov 12, 2016 09:54
--- NOTE | 2016-11-12 10:30 | NUR ---
Morning Rounds Staffed patient's case with case management and social work. MD not present at this time. Was informed patient's status will likely change from observation to inpatient, no plan for discharge at this time.
[2016-11-12 10:37] LABS: TROPONIN T 0.38 ug/L (0.0-0.011)
--- NOTE | 2016-11-12 10:38 | NUR ---
Critical Labs Received call from lab, was informed of critical lab values of CKMB 16.2 and Troponin 0.380. Both of these values are less than when MD contacted previously for critical so MD was not paged again.
--- NOTE | 2016-11-12 11:04 | NUR ---
Increased Pain Contacted Dr. Resendiz with the following cook page: Patient is complaining of increased back pain, reports 10/, Tylenol 3 already given. Please advise. Thank you. Lily DELGADO
--- NOTE | 2016-11-12 12:09 | NUR ---
MRI/ECHO follow up Spoke with ECHO staff, stated patient is on their schedule and the test should be done this afternoon. Spoke with MRI staff, was told there is not an order for MRI on this patient, stated a new order needs to be put in by the MD.
--- NOTE | 2016-11-12 12:12 | NUR ---
Order for MRI Contacted Dr. Resendiz with the following jeff page: Called MRI to find schedule for patient, but was told they do not have an order for an MRI, stated a new order for an MRI needs to be placed by . Thanks you. Lily DELGADO
--- NOTE | 2016-11-12 12:34 | NUR ---
Case Management: IMM given and explained to pt at bedside at 12:25. Pt unable to sign (having problems holding pen), noted on original IMM. Original placed on hard chart, pt given copy. YUMI Echeverria RN
--- NOTE | 2016-11-12 13:27 | NUR ---
Social Work: Initial Assessment D: Per EMR review, pt is a 56 year old male admitted for Stroke. Pt is [employer] with no LTC insurance or VA benefits. PCP is Shane Gomez MD. NOK is Gordon Negron, father, [phone]. Advanced directives information declined by pt. Readmit score is moderate, 5/8. FINANCIAL SERVICES AUDITOR met with pt at bedside. Sw role explained and contact info provided. See initial assessment. Pt lives in [place], [facility]. He is I with ADLs at baseline and uses no DME. Pt continues to drive and states he has never had HH or skilled rehab. Pt expresses no concerns about discharge home and has been ambulating I during admission. Pt states his uncle will transport him home when ready. A: Pt who is I at baseline. P: Anticipate pt to likely discharge home via POV and no further sw needs. FINANCIAL SERVICES AUDITOR to continue to follow. POONAM Wu Addendum: 11/12/16 at 1331 by COLBY MARRERO Amended: Links added.
--- NOTE | 2016-11-12 14:18 | NUR ---
MRI/ECHO Contacted Dr. Resendiz with the following cook page: Patient is still anxious at times and MRI would like to reattempt today, I believe premedication prior to MRI would increase chances of completion today. Also, ECHO still not done, but is on the schedule. Thank you. Lily DELGADO
--- NOTE | 2016-11-12 14:45 | NUR ---
Evaluation completed. Please go to "Notes" then click on "Assessments and Notes" (bottom left corner of screen). Then select appropriate discipline tab on top of screen.
[2016-11-12] MEDS ORDERED: LORazepam 0.5 mg Tablet PO ONE (14:55)
--- NOTE | 2016-11-12 14:58 | NUR ---
Return call from Dr. Martín Resendiz stated she will place an order for PO Ativan for to premedicate for MRI. I contacted MRI to inform them of the pending premedication order, was told they would call an hour prior to picking up patient so the medication could be given to patient in time.
--- NOTE | 2016-11-12 16:18 | NUR ---
Anxiety/Nicotine Patch Paged Dr. Resendiz at [phone] to request another order for nicotine patch and possibly another order for anxiety meds, as patient is stating he is having a "nicotine fit" and will leave if he is not able to get something for it. Called MRI first to find out if they may be coming to get him within the hour so the premedication of Ativan could be given now, but they stated they will not be coming to get him until 9pm.
--- NOTE | 2016-11-12 16:22 | NUR ---
Received return call from Dr. Martín Resendiz returned my call, she stated to go ahead and give patient nicotine patch now.
--- NOTE | 2016-11-12 17:19 | DRSVH ---
[facility] [address] [place] [address] Echocardiogram Report Name: RAJ OSEGUERA WStudy Date: 11/12/2016 Height: 71 in Hospital Exam Location: [facility] Weight: 168 lb Gender: Male BSA: 2.0 m2 : 1960 Age: 56 yrs BP: 129/86 mmHg Reason For Study: STROKE Ordering Phys[facility]: Tracey Vazquez Referring Physician: Dr. Shane Gomez Interpretation Summary The left ventricle is normal in size. Left ventricular systolic function is normal without focal wall motion abnormalities. The ejection fraction is estimated to be 60-65%. Assessment of diastolic parameters indicates a relaxation abnormality of the left ventricle, consistent with normal filling pressures. The right ventricle is normal in size and function. Pulmonary artery pressures cannot be estimated because of the lack of a measurable TR jet velocity. Both atria are normal in size. Injection of contrast documented an interatrial shunt. There is mild to moderate mitral regurgitation. There is mild to moderate aortic regurgitation. There is no other significant valvular heart disease. The aortic root is mildly dilated. Procedure: A two-dimensional transthoracic echocardiogram with color flow and Doppler was performed. The study quality was technically adequate. Comparison is made with the echocardiogram of 10-15-2008. Bubble study is performed. The patient was in normal sinus rhythm during the exam. Left Ventricle: The left ventricle is normal in size. There is mild concentric left ventricular hypertrophy. Left ventricular systolic function is normal without focal wall motion abnormalities. The ejection fraction is estimated to be 60-65%. Assessment of diastolic parameters indicates a relaxation abnormality of the left ventricle, consistent with normal filling pressures. Right Ventricle: The right ventricle is normal in size and function. Atria: Both atria are normal in size. Injection of contrast documented an interatrial shunt. Mitral Valve: The mitral valve leaflets appear normal. There is no evidence of stenosis, fluttering, or prolapse. There is mild to moderate mitral regurgitation. Aortic Valve: The aortic valve is not well visualized. The aortic valve opens well. There is mild to moderate aortic regurgitation. Tricuspid Valve: The tricuspid valve leaflets are thin and pliable. There is a trace or physiologic amount of tricuspid regurgitation. Pulmonary artery pressures cannot be estimated because of the lack of a measurable TR jet velocity. Pulmonic Valve: The pulmonic valve is not well visualized. There is no pulmonic valvular regurgitation. There is no other significant valvular heart disease. Great Vessels: The aortic root is mildly dilated. The ascending aorta could not be visualized. The pulmonary is not well visualized. The IVC is of normal diameter and collapses greater than 50% with a sniff. This suggests a low right atrial pressure of 3 mm Hg. Pericardium/ Pleura There is no pericardial effusion. There is no pleural effusion. MMode/2D Measurements & Calculations LVIDd: 4.7 cm LA dimension: 3.0 cm RA long axis LVOT diam: 2.1 cm LVIDs: 3.2 cm AoV Opening FS: 30.7 % LA A2 area: 19.3 cm RA area IVSd: 0.96 cm LA A4 area: 17.6 cm Ao root diam LVPWd: 1.1 cm LA length (vol) : 17.4 cm RA vol Ao Arch Diam (Prox LA vol: 55.4 ml : 50.4 ml Trans): 2.9 cm LA vol index RA : 25.7 mm/ RVDd major IVC diam: 1.9 cm : 7.9 cm LV lee. diameter/BSA LV sys. diameter/BSA RVD2 (mid) (cm/m^2): 2.4 (cm/m^2): 1.7 : 2.6 cm Doppler Measurements & Calculations Ao V2 max MV E max morales MV E/A: 0.87 PA V2 max : 130.2 cm/sec : 53.4 cm/sec Med Peak E' Morales : 85.5 cm/sec Ao max P.8 mmHgMV A max morales PA mean PG Ao mean PG : 61.4 cm/sec E/E' med: 7.2 MV P1/2t: 95.3 msec Lat Peak E' Morales PA Accel Time LVOT Max Morales MR ERO: 0.14 cm2 : 0.11 sec : 95.4 cm/sec E/E' lat: 5.0 RODERICK(I,D): 2.9 cm E/e' average: 6.1 sev ratio: 0.88 Pulm A Revs Dur AI P1/2t : 378.9 msec MV A dur: 0.12 sec AI dec slope : 370.2 cm/s2c MV P1/2t max morales Ao V2 mean LV V1 max PG MR flow rate : 90.7 cm/sec : 82.6 cm3/sec MVA(P1/2t): 2.3 cm2Ao V2 VTI: 18.8 cm LV V1 VTI: 16.5 cm MR PISA radius RODERICK(V,D): 2.4 cm2 PA V2 mean RODERICK indexed to BSA Pulm A Revs Dur - MV : 53.3 cm/sec (cm^2/m^2): 1.5 A Dur: 0.00 msec Reading Physician:ITA
[2016-11-12] MEDS ORDERED: CITALOPRAM PO SCH (18:05)
[2016-11-12] MEDS ORDERED: LORazepam 0.5 mg Tablet ONE (20:08)
--- NOTE | 2016-11-12 20:24 | NUR ---
Ativan/MRI PAtient agreeable to re-attempt MRI 1x dose ativan given
--- NOTE | 2016-11-12 20:53 | NUR ---
MRI off floor to MR! Addendum: 11/12/16 at 2155 by ROBERT HILLS RN Returned floor s/p successful MRI per tech
--- NOTE | 2016-11-12 22:14 | DRSVH ---
PROCEDURE: MRI STROKE PROTOCOL ([id number]) Pre- and post-contrast brain MRI, non-contrast brain MR angiogram, pre- and postcontrast neck MR nadia ogram INDICATIONS: subacute stroke TECHNIQUE: Brain: Noncontrast axial T1 spin echo, axial T2 fast spin echo, sagittal and axial FLAIR, coronal T2 fast spin echo, axial gradient echo, axial diffusion and ADC through the brain. After the administr ation of contrast, axial 3D VIBE of the cranial vasculature and brain. Brain MRA: Non-contrast 3-D time of flight MR angiogram, with multiple btnwifv-ahzythswm-atzgixkrew (MIP) reformats performed. Neck MRA: Axial and sagittal TruFISP through the neck. Coronal dynamic MR angiogram during administ ration of contrast in the arterial and venous phases, with 3-dimenstional tnjygoz-iqabsupgl-vunqghvuu n (MIP) reformats constructed from subtraction images. COMPARISON: None. FINDINGS: Image quality: Limited by patient motion artifact. BRAIN: CSF spaces: Ventricles are normal in size and shape. Basal cisterns are patent. No extra-axial flu id collections. Brain: No intracranial bleeds or mass effects. Chowdhury-white matter interface is normal. Restricted di ffusion with corresponding hyperintense T2 signal noted in the right occipito-temporal lobes in the l eft frontal-parietal lobes compatible with subacute infarcts. Old, small, infarcts noted in the josue al aspect of the left occipital lobe. A few, scattered, punctate foci of increased T2 signal noted i n the subcortical and subinsular white matter tracts compatible with chronic requester ischemic giles e. Brainstem appears normal. Patchy susceptibility weighted hypointensity is noted in the left front al-parietal and right occipital and temporal infarct compatible with petechial hemorrhage. Normal in travascular flow voids are present. No abnormal intracranial enhancement. There is normal contrast enhancement of the dural sinuses. Skull and face: Calvarial marrow signal is normal. Orbits appear normal. Sinuses: Sinuses and mastoids are clear. BRAIN MR ANGIOGRAM: Anterior circulation: Intracranial internal carotid arteries are normal in size and enhancement. Th e flow within the paired anterior cerebral arteries is normal and symmetric. The flow within the mid dle cerebral arteries is normal and symmetric. The anterior communicating artery is seen. No stenos es, occlusions, or aneurysms. Posterior circulation: The visualized portions of the vertebral arteries demonstrate normal caliber, and join to form a normal appearing basilar artery. The flow within the posterior cerebral arteries is normal and symmetric. The right posterior cerebral artery has a origin which is a congenita l anatomic variant. No stenoses, occlusions, or aneurysms. NECK MR ANGIOGRAM: Carotids: Great vessels demonstrate a conventional anatomy as they arise from the aortic arch. The origins of the common carotid arteries appear patent. The calibers and courses of both common caroti d arteries are normal. Mild atherosclerotic irregularity noted of the proximal right internal carotid artery which causes less than 50% stenosis. Minimal atherosclerotic irregularity noted in the origi n of left internal carotid artery which does not cause measurable stenosis. Posterior circulation: Metastatic irregularity noted origins of the vertebral arteries. Atheroscler otic disease causes mild narrowing of the origin of the right vertebral artery. Atherosclerotic dise ase causes severe stenosis of the origin the left vertebral artery. More superior portions of both v ertebral arteries demonstrate normal course and caliber, and join to form a normal appearing basilar artery. Miscellaneous: Subclavian arteries appear patent. Pre-contrast images through the neck show no soft tissue abnormalities. IMPRESSION: BRAIN MRI: 1. Subacute left frontal-parietal and right occipital and temporal infarcts. 2. Chronic left occipital infarct. 3. Mild, diffuse volume loss. 4. Minimal periventricular and subcortical white matter chronic microvascular ischemic changes. BRAIN MR ANGIOGRAM: Negative examination. NECK MR ANGIOGRAM: 1. Less than 50% stenosis of the proximal right internal carotid artery. 2. Minimal atherosclerotic disease without measurable stenosis involving the origin of the left inte rnal carotid artery. 3. Mild stenosis of the origin of the right cuboid. 4. High-grade stenosis origin left vertebral artery. The estimate of stenosis included in the report of the imaging study was calculated using the NASCET method Dictated by: Sana العلي MD, PhD on 11/12/2016 at 22:00 Approved by: Sana العلي MD, PhD on 11/12/2016 at 22:13
--- NOTE | 2016-11-13 00:38 | CONS ---
[address] [address] CONSULTATION REPORT PATIENT: RAJ OSEGUERA : 1960 MR#: [id number] ADMIT: 11/11/2016 JOB ID: [id number] CARDIOLOGY CONSULTATION: DATE OF SERVICE: 11/12/2016 CHIEF COMPLAINT: I was asked by the hospitalist team to consult on this patient given elevated troponin. HISTORY OF PRESENT ILLNESS: Patient is a 56-year-old man with a past medical history significant for hypertension, hyperlipidemia. He has a history of a prior stroke some time ago. With this presentation, he said he felt somewhat disoriented, somewhat forgetful, and apparently combative. He does not recall having any focal problems with numbness, tingling, weakness, speech or vision changes. He had imaging with head CT that showed new subacute left frontal and right temporal parietal lobe infarcts and no change in chronic left occipital lobe infarct. There was no acute intracranial abnormality appreciated. He also had a carotid duplex that showed no significant carotid stenosis. Chest x-ray showed right upper lobe pulmonary nodule with recommendation for followup with noncontrast CT. He says he is doing much better. He is still getting a little bit disoriented. He never had any chest pain, chest pressure, increased shortness of breath. He denies any problems with chest pain, chest pressure, orthopnea, PND, lower extremity edema, palpitations, presyncope, syncope. He said he had a stress test done, and review of the notes shows that he had a stress test done last fall, which appears to be a low risk test. His EKG did show some T-wave changes in the anterior leads. He has been getting up and walking around. He has also been working with Physical Therapy and he says he is doing fine. PAST MEDICAL HISTORY/PROBLEM LIST: 1. History of hyperlipidemia. 2. History of hypertension. 3. History of seizures. 4. History of stroke. MEDICATIONS AN OUTPATIENT: Included lisinopril, metoprolol, lovastatin, citalopram, BuSpar, gabapentin, Advair, and ProAir. ALLERGIES: IODINE. SOCIAL HISTORY: He is a smoker. No significant alcohol use. FAMILY HISTORY: Mom and dad in good health. No early coronary disease. REVIEW OF SYSTEMS: Overall health: No fevers, chills, night sweats, or weight loss. GI: Denies nausea, vomiting, blood in his stool. : No dysuria, no hematuria. Pulmonary: No increased shortness of breath. Cardiac: As per HPI. Endocrine: No heat or cold intolerance. Musculoskeletal: No acute joint complaints. ENT: No sore throat, difficulty swallowing. Optho: No acute vision changes. Neuro: Stroke symptoms as noted. Psych: No acute issues. Heme: No easy bruising or bleeding. All other systems on a 12 point review of systems are negative. PHYSICAL EXAMINATION: Vital signs: Blood pressure is 172/99, heart rate is 88, afebrile. Sats are 98% on room air. General: In no acute distress. Speaking in full sentences without apparent shortness of breath. Head and neck exam: Normocephalic, atraumatic. Neck: I cannot appreciate JV distention. No carotid bruits appreciated. Heart: Regular rate and rhythm without obvious murmurs, gallops, or rubs appreciated. Lungs: With coarse sounds and some expiratory wheezing. Abdomen: Soft, nondistended, nontender. Back: No CVA tenderness to palpation. Extremities: Warm. No appreciable edema, 1 to 2+ distal pulses. Skin: Without breakdown appreciated. Some tattoos appreciated. Neuro: Alert and interactive. He says he feels somewhat disoriented at this time. Gait is not tested. Psych: Appropriate mood and affect. ENT: Mucous membranes moist. No erythema. Ophtho: Vision grossly intact. DIAGNOSTIC DATA: EKG shows sinus rhythm with some T-wave changes in leads V1 through V3. This is unchanged compared to a prior EKG. An echocardiogram was performed and this shows normal LV systolic function. No focal wall motion abnormalities were mentioned. Right ventricle was normal size and function. Contrast did show evidence for probable PFO. Mild to moderate mitral regurgitation CURRENT MEDICATIONS: Include aspirin, nicotine patch, gabapentin, pantoprazole, hydralazine as needed, and Lipitor. IMPRESSION: The patient came in with a stroke. He also has an elevated troponin. Troponins can sometimes be elevated in the setting of stroke. Sometimes these are actually related with stress type cardiomyopathy. No focal wall motion abnormalities were called on the interpretation of the EKG, but this may still be the case. He does have EKG changes and sometimes, again, stress cardiomyopathies are associated with these T- wave changes. PLAN/RECOMMENDATION: 1. I will leave it to the hospital team to decide when we should treat this patient's blood pressure and make it more adequately controlled. 2. He is currently on aspirin. There has been concern about putting him on heparin given risk of hemorrhagic conversion. His case will need to be discussed with Neurology in terms of any other additional agents such as Plavix, and it is unclear if heparin would ever be started during this admission, especially given the stroke. 3. Regarding his cardiac issues, this may be related to the stroke itself. He did have a reassuring stress test not too long ago; however, given his risk factors for coronary disease, when he is recovered from the stroke, it would be reasonable to perform another stress test on him and make sure that there is no evidence for ischemia. At this time, doing a heart catheterization would not be a good idea given history of stroke, and the risks of stroke with cardiac catheterization as well as the issues of giving anticoagulants in a patient who has just had a stroke. 45 minutes were spent reviewing the chart and imaging, speaking with an examining the patient and discussing with the hospitalist JOSE
[2016-11-13 02:26] VITALS: BP 169/100; PULSE 89; RESP 18; O2SAT 97
--- NOTE | 2016-11-13 02:35 | NUR ---
30 beat run V-Tach telemetry called stating patient had above run, patient assymptomatic does c/o back pain medicated w/prn, mag and potassium checked per tele protocol MD zander aware also
[2016-11-13] MEDS: Codeine-APAP 30-300 mg Tablet PO PRN ×2 (03:01→07:07)
--- NOTE | 2016-11-13 03:02 | NUR ---
Telemetry: VTACH Patient has been Sinus Rhythm 70-90s. At 02:44, patient had 34 beats of VTACH at a rate of 300bpm: duration of 9 seconds. BHARGAVI guillory.
--- NOTE | 2016-11-13 05:17 | PCM.PNMED ---
Subjective Date of Service Nov 13, 2016 Subjective Patient is examined. He appears to be more relaxed today but states that he wants to go home. Staff say he has a history of wanting to leave AMA. I sat down with him and explained to him that that is not the best course for him at this point considering significant findings on his MRA and echocardiogram. We would like to monitor him in this acute period for a few more days. Patient stated that while he understands this he really is more comfortable going home to his dogs in his own bed. I offered to him that we will try to make his bed more comfortable. Patient stated that he appreciates our efforts but he does want to sign out AMA. He is willing to follow up with cardiology and neurology and an outpatient basis. However he states he would rather not go to [facility], with whom we have been consulting with. Advised him that it will take longer to see someone local but the is what he is willing to do. Patient had a an overnight done of 34 beats of V. tach. Cardiology has seen the patient again. They will follow up as o/p as he has been restarted on his beta isreal yesterday and there is not much more we can do because patient is wanting to leave AM Exam Vital Signs Vital Sign - Last Date Time Temp Pulse Resp B/P Pulse Ox O2 Delivery O2 Flow Rate FiO2 11/13/16 02:26 36.9 89 18 169/100 97 Room Air Intake and Output 11/12/16 11/12/16 11/13/16 Cumulative From/Thru 15:00 23:00 07:00 11/11/16 11:07 - 11/12/16 17:25 Intake Total 1582 ml 4126 ml Output Total 675 ml Balance 1582 ml 3451 ml Intake Oral 480 ml 1800 ml IV Total 1102 ml 2326 ml Output Urine Total 675 ml # Voids 5 10 # Bowel Movements 3 6 Exam Gen.: Mildly anxious HEENT: The eyes are equally reactive to light, poor dentition Heart: Regular rate and rhythm no S3-S4 sounds Lungs: CTA clear to auscultation no wheezes or crackles bilaterally Abdomen: Flat nontender normal bowel sounds Neuro: Patient's coordination seems to be better today. The lower cranial nerve XI right shoulder is weaker today. Peripheral vision is improved. Otherwise other cranial nerves are grossly intact. Patient is unable to perform alternating hands. 2/4 for reflexes and patellar tendon. States he has no altered sensation in both lower extremities. MSK: Include right back hanger strength still weaker than left Psych: Mildly anxious IVs and Medications IV Fluids Normal saline 70 mL/h Medications Reviewed: Medications were reviewed in detail Lab and Diagnostics Laboratory Tests Test 11/13/16 03:00 White Blood Count 9.6th/mm3 (3.8-10.1) Red Blood Count 4.01mil/mm3 (4.40-5.80) Hemoglobin 12.0g/dL (13.8-17.2) Hematocrit 35.5% (41.0-50.0) Mean Corpuscular Volume 88.5fL (81-100) Mean Corpuscular Hemoglobin 29.9pg (27.0-35.0) Mean Corpuscular Hemoglobin Concent 33.8% (32.0-37.0) Red Cell Distribution Width 14.0% (12.3-15.4) Platelet Count 260bil/L (150-400) Neutrophils (%) (Auto) 67.8% (40-74) Lymphocytes (%) (Auto) 20.5% (14-46) Monocytes (%) (Auto) 10.0% (4-12) Eosinophils (%) (Auto) 0.9% (0-5) Basophils (%) (Auto) 0.1% (0-3) Sodium Level 139mEq/L (134-144) Potassium Level 3.9mEq/L (3.5-5.2) Chloride Level 101mEq/L (97-108) Carbon Dioxide Level 20mmol/L (18-29) Blood Urea Nitrogen 23mg/dL (6-24) Creatinine 0.92mg/dL (0.76-1.27) Estimat Glomerular Filtration Rate 90mL/min (>59) Glucose Level 108mg/dL (60-99) Calcium Level 9.1mg/dL (8.5-10.1) Magnesium Level 2.0mg/dL (1.6-2.6) Total Bilirubin 0.5mg/dL (0.0-1.2) Aspartate Amino Transf (AST/SGOT) 88U/L (0-50) Alanine Aminotransferase (ALT/SGPT) 201U/L (0-44) Alkaline Phosphatase 76U/L (25-150) Total Protein 6.3g/dL (6.4-8.4) Albumin 3.2g/dL (3.4-5.0) Microbiology 11/11/16 Blood Culture - Preliminary, Resulted No growth at 2 days; culture examined... Result Diagram: 11/12/16 0855 11/13/16 0300 X-Rays, CTs and MRIs Chest Xray Interpretation: IMPRESSION: Right upper lobe pulmonary nodule. Recommend noncontrast chest CT scan when clinically feasible. Dictated by: Sai RODRIGUEZ Interpreted: Sana العلي MD on 11/11/2016 at 11:54 Interpretation / Wet Read by: Interpret - Radiologist CT Head Interpretation IMPRESSION: 1. New subacute left frontal and right temporoparietal lobe infarcts. No change in chronic left occipital lobe infarct. 2. No acute intracranial abnormality. Dictated by: Xin Crouch M.D. on 11/11/2016 at 11:33 Study: Head CT no contrast Interpretation / Wet Read by: Interpret - ED physician [facility] Diagnostic Imaging Department [place], [place] [id number] Patient Name: RAJ OSEGUERA MR#: [id number] Location: [place] Ordering Phys: Martín Rafaela Ayala Date of Service: 11/12/16 1217 PROCEDURE: MRI STROKE PROTOCOL ([id number]) Pre- and post-contrast brain MRI, non-contrast brain MR angiogram, pre- and postcontrast neck MR angiogram INDICATIONS: subacute stroke TECHNIQUE: Brain: Noncontrast axial T1 spin echo, axial T2 fast spin echo, sagittal and axial FLAIR, coronal T2 fast spin echo, axial gradient echo, axial diffusion and ADC through the brain. After the administration of contrast, axial 3D VIBE of the cranial vasculature and brain. Brain MRA: Non-contrast 3-D time of flight MR angiogram, with multiple maximum- intensity-projection (MIP) reformats performed. Neck MRA: Axial and sagittal TruFISP through the neck. Coronal dynamic MR angiogram during administration of contrast in the arterial and venous phases, with 3-dimenstional vwschdm-tugcnvbow-npspoigydr (MIP) reformats constructed from subtraction images. COMPARISON: None. FINDINGS: Image quality: Limited by patient motion artifact. BRAIN: CSF spaces: Ventricles are normal in size and shape. Basal cisterns are patent. No extra-axial fluid collections. Brain: No intracranial bleeds or mass effects. Chowdhury-white matter interface is normal. Restricted diffusion with corresponding hyperintense T2 signal noted in the right occipito-temporal lobes in the left frontal-parietal lobes compatible with subacute infarcts. Old, small, infarcts noted in the mesial aspect of the left occipital lobe. A few, scattered, punctate foci of increased T2 signal noted in the subcortical and subinsular white matter tracts compatible with chronic requester ischemic change. Brainstem appears normal. Patchy susceptibility weighted hypointensity is noted in the left frontal-parietal and right occipital and temporal infarct compatible with petechial hemorrhage. Normal intravascular flow voids are present. No abnormal intracranial enhancement. There is normal contrast enhancement of the dural sinuses. Skull and face: Calvarial marrow signal is normal. Orbits appear normal. Sinuses: Sinuses and mastoids are clear. BRAIN MR ANGIOGRAM: Anterior circulation: Intracranial internal carotid arteries are normal in size and enhancement. The flow within the paired anterior cerebral arteries is normal and symmetric. The flow within the middle cerebral arteries is normal and symmetric. The anterior communicating artery is seen. No stenoses, occlusions, or aneurysms. Posterior circulation: The visualized portions of the vertebral arteries demonstrate normal caliber, and join to form a normal appearing basilar artery. The flow within the posterior cerebral arteries is normal and symmetric. The right posterior cerebral artery has a origin which is a congenital anatomic variant. No stenoses, occlusions, or aneurysms. NECK MR ANGIOGRAM: Carotids: Great vessels demonstrate a conventional anatomy as they arise from the aortic arch. The origins of the common carotid arteries appear patent. The calibers and courses of both common carotid arteries are normal. Mild atherosclerotic irregularity noted of the proximal right internal carotid artery which causes less than 50% stenosis. Minimal atherosclerotic irregularity noted in the origin of left internal carotid artery which does not cause measurable stenosis. Posterior circulation: Metastatic irregularity noted origins of the vertebral arteries. Atherosclerotic disease causes mild narrowing of the origin of the right vertebral artery. Atherosclerotic disease causes severe stenosis of the origin the left vertebral artery. More superior portions of both vertebral arteries demonstrate normal course and caliber, and join to form a normal appearing basilar artery. Miscellaneous: Subclavian arteries appear patent. Pre-contrast images through the neck show no soft tissue abnormalities. IMPRESSION: BRAIN MRI: 1. Subacute left frontal-parietal and right occipital and temporal infarcts. 2. Chronic left occipital infarct. 3. Mild, diffuse volume loss. 4. Minimal periventricular and subcortical white matter chronic microvascular ischemic changes. BRAIN MR ANGIOGRAM: Negative examination. NECK MR ANGIOGRAM: 1. Less than 50% stenosis of the proximal right internal carotid artery. 2. Minimal atherosclerotic disease without measurable stenosis involving the origin of the left internal carotid artery. 3. Mild stenosis of the origin of the right cuboid. 4. High-grade stenosis origin left vertebral artery. The estimate of stenosis included in the report of the imaging study was calculated using the NASCET method Dictated by: Sana العلي MD, PhD on 11/12/2016 at 22:00 Approved by: Sana العلي MD, PhD on 11/12/2016 at 22:13 [facility] Diagnostic [place] [address] Patient Name: RAJ OSEGUERA MR#: [id number] Location: [place] Ordering Phys: Rafaela Resendiz DO Date of Service: 11/12/16 1217 PROCEDURE: MRI STROKE PROTOCOL ([id number]) Pre- and post-contrast brain MRI, non-contrast brain MR angiogram, pre- and postcontrast neck MR angiogram INDICATIONS: subacute stroke TECHNIQUE: Brain: Noncontrast axial T1 spin echo, axial T2 fast spin echo, sagittal and axial FLAIR, coronal T2 fast spin echo, axial gradient echo, axial diffusion and ADC through the brain. After the administration of contrast, axial 3D VIBE of the cranial vasculature and brain. Brain MRA: Non-contrast 3-D time of flight MR angiogram, with multiple maximum- intensity-projection (MIP) reformats performed. Neck MRA: Axial and sagittal TruFISP through the neck. Coronal dynamic MR angiogram during administration of contrast in the arterial and venous phases, with 3-dimenstional tzkrcah-otnxludvz-yjucvpyazm (MIP) reformats constructed from subtraction images. COMPARISON: None. FINDINGS: Image quality: Limited by patient motion artifact. BRAIN: CSF spaces: Ventricles are normal in size and shape. Basal cisterns are patent. No extra-axial fluid collections. Brain: No intracranial bleeds or mass effects. Chowdhury-white matter interface is normal. Restricted diffusion with corresponding hyperintense T2 signal noted in the right occipito-temporal lobes in the left frontal-parietal lobes compatible with subacute infarcts. Old, small, infarcts noted in the mesial aspect of the left occipital lobe. A few, scattered, punctate foci of increased T2 signal noted in the subcortical and subinsular white matter tracts compatible with chronic requester ischemic change. Brainstem appears normal. Patchy susceptibility weighted hypointensity is noted in the left frontal-parietal and right occipital and temporal infarct compatible with petechial hemorrhage. Normal intravascular flow voids are present. No abnormal intracranial enhancement. There is normal contrast enhancement of the dural sinuses. Skull and face: Calvarial marrow signal is normal. Orbits appear normal. Sinuses: Sinuses and mastoids are clear. BRAIN MR ANGIOGRAM: Anterior circulation: Intracranial internal carotid arteries are normal in size and enhancement. The flow within the paired anterior cerebral arteries is normal and symmetric. The flow within the middle cerebral arteries is normal and symmetric. The anterior communicating artery is seen. No stenoses, occlusions, or aneurysms. Posterior circulation: The visualized portions of the vertebral arteries demonstrate normal caliber, and join to form a normal appearing basilar artery. The flow within the posterior cerebral arteries is normal and symmetric. The right posterior cerebral artery has a origin which is a congenital anatomic variant. No stenoses, occlusions, or aneurysms. NECK MR ANGIOGRAM: Carotids: Great vessels demonstrate a conventional anatomy as they arise from the aortic arch. The origins of the common carotid arteries appear patent. The calibers and courses of both common carotid arteries are normal. Mild atherosclerotic irregularity noted of the proximal right internal carotid artery which causes less than 50% stenosis. Minimal atherosclerotic irregularity noted in the origin of left internal carotid artery which does not cause measurable stenosis. Posterior circulation: Metastatic irregularity noted origins of the vertebral arteries. Atherosclerotic disease causes mild narrowing of the origin of the right vertebral artery. Atherosclerotic disease causes severe stenosis of the origin the left vertebral artery. More superior portions of both vertebral arteries demonstrate normal course and caliber, and join to form a normal appearing basilar artery. Miscellaneous: Subclavian arteries appear patent. Pre-contrast images through the neck show no soft tissue abnormalities. IMPRESSION: BRAIN MRI: 1. Subacute left frontal-parietal and right occipital and temporal infarcts. 2. Chronic left occipital infarct. 3. Mild, diffuse volume loss. 4. Minimal periventricular and subcortical white matter chronic microvascular ischemic changes. BRAIN MR ANGIOGRAM: Negative examination. NECK MR ANGIOGRAM: 1. Less than 50% stenosis of the proximal right internal carotid artery. 2. Minimal atherosclerotic disease without measurable stenosis involving the origin of the left internal carotid artery. 3. Mild stenosis of the origin of the right cuboid. 4. High-grade stenosis origin left vertebral artery. The estimate of stenosis included in the report of the imaging study was calculated using the NASCET method Dictated by: Sana العلي MD, PhD on 11/12/2016 at 22:00 Approved by: Sana العلي MD, PhD on 11/12/2016 at 22:13 Cardiac Echo Impressions [facility] Diagnostic [place] [address] Patient Name: RAJ OSEGUERA MR#: [id number] Location: [place] Ordering Phys: Rafaela Resendiz DO Date of Service: 11/12/[address] [place] [id number] Echocardiogram Report Name: RJA OSEGUERA WStudy Date: 11/12/2016 Height: 71 in Hospital Exam Location: [facility] Weight: 168 lb Gender: Male BSA: 2.0 m2 : 1960 Age: 56 yrs BP: 129/86 mmHg Reason For Study: STROKE Ordering Physician: HOSPITALIST SVHPerformed By: Tracey Vazquez Referring Physician: Dr. Shane Gomez Interpretation Summary The left ventricle is normal in size. Left ventricular systolic function is normal without focal wall motion abnormalities. The ejection fraction is estimated to be 60-65%. Assessment of diastolic parameters indicates a relaxation abnormality of the left ventricle, consistent with normal filling pressures. The right ventricle is normal in size and function. Pulmonary artery pressures cannot be estimated because of the lack of a measurable TR jet velocity. Both atria are normal in size. Injection of contrast documented an interatrial shunt. There is mild to moderate mitral regurgitation. There is mild to moderate aortic regurgitation. There is no other significant valvular heart disease. The aortic root is mildly dilated. Procedure: A two-dimensional transthoracic echocardiogram with color flow and Doppler was performed. The study quality was technically adequate. Comparison is made with the echocardiogram of 10-15-2008. Bubble study is performed. The patient was in normal sinus rhythm during the exam. Left Ventricle: The left ventricle is normal in size. There is mild concentric left ventricular hypertrophy. Left ventricular systolic function is normal without focal wall motion abnormalities. The ejection fraction is estimated to be 60-65%. Assessment of diastolic parameters indicates a relaxation abnormality of the left ventricle, consistent with normal filling pressures. Right Ventricle: The right ventricle is normal in size and function. Atria: Both atria are normal in size. Injection of contrast documented an interatrial shunt. Mitral Valve: The mitral valve leaflets appear normal. There is no evidence of stenosis, fluttering, or prolapse. There is mild to moderate mitral regurgitation. Aortic Valve: The aortic valve is not well visualized. The aortic valve opens well. There is mild to moderate aortic regurgitation. Tricuspid Valve: The tricuspid valve leaflets are thin and pliable. There is a trace or physiologic amount of tricuspid regurgitation. Pulmonary artery pressures cannot be estimated because of the lack of a measurable TR jet velocity. Pulmonic Valve: The pulmonic valve is not well visualized. There is no pulmonic valvular regurgitation. There is no other significant valvular heart disease. Great Vessels: The aortic root is mildly dilated. The ascending aorta could not be visualized. The pulmonary is not well visualized. The IVC is of normal diameter and collapses greater than 50% with a sniff. This suggests a low right atrial pressure of 3 mm Hg. Pericardium/ Pleura There is no pericardial effusion. There is no pleural effusion. MMode/2D Measurements & Calculations LVIDd: 4.7 cm LA dimension: 3.0 cm RA long axis LVOT diam: 2.1 cm LVIDs: 3.2 cm AoV Opening FS: 30.7 % LA A2 area: 19.3 cm RA area IVSd: 0.96 cm LA A4 area: 17.6 cm Ao root diam LVPWd: 1.1 cm LA length (vol) : 17.4 cm RA vol Ao Arch Diam (Prox LA vol: 55.4 ml : 50.4 ml Trans): 2.9 cm LA vol index RA : 25.7 mm/ RVDd major IVC diam: 1.9 cm : 7.9 cm LV lee. diameter/BSA LV sys. diameter/BSA RVD2 (mid) (cm/m^2): 2.4 (cm/m^2): 1.7 : 2.6 cm Doppler Measurements & Calculations Ao V2 max MV E max morales MV E/A: 0.87 PA V2 max : 130.2 cm/sec : 53.4 cm/sec Med Peak E' Morales : 85.5 cm/sec Ao max P.8 mmHgMV A max morales PA mean PG Ao mean PG : 61.4 cm/sec E/E' med: 7.2 MV P1/2t: 95.3 msec Lat Peak E' Morales PA Accel Time LVOT Max Morales MR ERO: 0.14 cm2 : 0.11 sec : 95.4 cm/sec E/E' lat: 5.0 RODERICK(I,D): 2.9 cm E/e' average: 6.1 sev ratio: 0.88 Pulm A Revs Dur AI P1/2t : 378.9 msec MV A dur: 0.12 sec AI dec slope : 370.2 cm/s2c MV P1/2t max morales Ao V2 mean LV V1 max PG MR flow rate : 90.7 cm/sec : 82.6 cm3/sec MVA(P1/2t): 2.3 cm2Ao V2 VTI: 18.8 cm LV V1 VTI: 16.5 cm MR PISA radius RODERICK(V,D): 2.4 cm2 PA V2 mean RODERICK indexed to BSA Pulm A Revs Dur - MV : 53.3 cm/sec (cm^2/m^2): 1.5 A Dur: 0.00 msec Reading Physician:PM Assessment & Plan This is a 56-year-old gentleman with past medical history of CAD, hypertension, hyperlipidemia, seizures, previous CVA admitted due to concern for subacute stroke. Assessment #1 Subacute stroke: As evidenced by CT scan in the ER. Unknown duration of onset felt to be passed TPA. --The plan to obtain every 4 hours neuro checks, fall precautions --[facility] neuro is contacted regarding the patient and they felt they do not have much else to add except that we should Have cardiology in the loop in case TTE does not show any evidence of emboli and patient needs a LUDA as his stroke presentation his right and left(may likely be cardioembolic. -- Echocardiogram did not reveal acute findings , carotid ultrasound showed less than 50% stenosis, MRA stroke protocol was done on 11/12/16 showed concern for severe stenosis in the vertebral artery. Internal carotid artery findings corresponding to the CAROTIDS. These findings were discussed with [facility] neuro and they felt he could be followed as an outpatient with them. This information is passed on to the patient but he wanted to try and continue to reach out to somebody local. -- cardiology is consulted and they will see the patient: They performed an echocardiogram which showed concern for foramen ovale. They have also reviewed the telemetry strip for this 34 beat V. tach. Metoprolol home medications restarted this a.m. -- Patient is advanced to some PO medications today as he passed the swallow test. Gabapentin, Flexeril for pain relief, buspirone reduced dose, citalopram reduced dose were given. Metoprolol was restarted as above -- Diet is advanced today -- Normal saline 70 mL/h -- We will plan to do very conservative hydralazine 10 mg every 6 hours when necessary with parameters of SBP less than or equal to 100 -- PT/OT/speech therapy -- Social work consult -- Upon recommendation from cardiology is started on Plavix 75 mg. -- With the primary team and the modeling agent here that agent should be observed at least for few more days in the light of his tachycardia overnight as well as his coordination issues. He scored 10 out of 30 and his moca indicating severe cognitive limitations. -- Because of concern for his ability to make decisions for himself and leaving AMA, we consult and psychiatry. They had an extensive consult conversation with the patient and determined that patient is Available of making his own decisions. He is Alert understanding the risks of leaving AGAINST MEDICAL ADVICE. -- Patient was given scripts for medications that will be beneficial during this phase of his post-CVA recover is asked to follow with cardiology as well as neurology as outpatient. Chronic problems: Hypertension: We will hold by mouth medications until speech clears him. Hydralazine as above. May consider labetalol if his heart rate continues to support it. Plan to restart metoprolol tomorrow CAD: Lipid panel is ordered, he is already on lisinopril, metoprolol, lovastatin at home. He is unknown if he was ever on aspirin. Restarted lovastatin. Metoprolol is restarted today. Agitation: This may be due to his stroke R it could be some psychiatric history. We will review his records once we receive them. Depression: Citalopram 40 mg daily. Disposition: Patient will be evaluated by physical therapy, speech therapy tomorrow a.m. plan to follow the recommendations as well as cardiology studies further decide a plan for his discharge. GI Prophylaxis: Proton Pump Inhibitor VTE Prophylaxis: SCDs VTE Mechanical Devices: Intermittant Pneumatic CD Resuscitation Status: CPR: Attempt Resuscitation Rafaela Resendiz DO Nov 13, 2016 05:16
[2016-11-13 05:29] LABS: BASOPHILS % (AUTO) 0.1 % (0-3); EOSINOPHILS % (AUTO) 0.9 % (0-5); Mean Corpuscular Hemoglobin 29.9 pg (27.0-35.0); Mean Corpuscular Volume 88.5 fL (81-100); NEUTROPHILS % (AUTO) 67.8 % (40-74); Platelet Count 260 bil/L (150-400)
[2016-11-13 06:00] VITALS: BP 157/103; PULSE 90; RESP 18; O2SAT 98
[2016-11-13 07:52] VITALS: PULSE 89; RESP 20; O2SAT 94
[2016-11-13] MEDS: Albuterol 2.5 mg/3 mL Inhalation Solution NEB SCH ×2 (07:52→12:00)
[2016-11-13 08:00] VITALS: PULSE 97
[2016-11-13] MEDS ORDERED: Heparin 5,000 Unit/mL Inj SUBQ SCH (08:30)
[2016-11-13] MEDS ORDERED: MeTOProlol XL 25 mg ER24 Tablet PO SCH (08:30)
[2016-11-13] MEDS: Pantoprazole 4 mg/mL 10 mL Inj IVPUSH SCH (09:09)
--- NOTE | 2016-11-13 09:59 | NUR ---
Threatening to leave AMA Patient stating "I'm going to be leaving today, whether they discharge me or not." Per family patient has hx of leaving AMA several times at [facility]. Hospitalist notified. Patient has agreed to stay until Hospitalist speaks with him.
[2016-11-13] MEDS ORDERED: BusPIRone 15 mg Dividose Tablet PO SCH (10:05)
[2016-11-13 10:08] VITALS: BP 149/98; PULSE 86; RESP 18; O2SAT 96
--- NOTE | 2016-11-13 10:58 | PCM.DIMED ---
Discharge Instructions Date of Service Nov 13, 2016 Dates of Hospitalization Nov 11, 2016 at 14:21 Discharge Diagnosis Discharge Diagnosis Subacute CVA Medication Instructions Take Plavix 75 mg QD PO Please note some of your medications changed. Buspirone and citalopram dosing is adjusted. Continue metoprolol and Lisinopril. Follow up with Dr. Dennison as out patient in Cardiology in one week. Follow up with [facility] with Dr. scott or some one in his group in 1-2 weeks. or Some one lcoal of patient's choice. (He expressed concern as you did not want to go to [facility]. Please select someone locally and staff will try to arrange it for him, please be aware it will take several weeks before he is able to see someone local.) Diet Other (soft) Activity Limited until seen by PCP Call your provider Fever or Chills, Shortness of breath, Bleeding, Chest pain, Vomitting, Excessive diarrhea, Weakness (unilateral), Other Patient Instructions Please be aware that we have discussed the risk of sudden deteriorations of your health as you are leaving AMA. We have advised you extensively and you decided to leave at your own risk. Follow-up plan Follow up w/ Dr. Dennison in 1 week Follow up w/ neuro in 1-2 weeks Follow up with PCP in one week Attending's Statement Patient has left AMA Rafaela Resendiz DO Nov 13, 2016 10:58
[2016-11-13] MEDS ORDERED: LISI10TA PO (11:02)
[2016-11-13] MEDS ORDERED: CLOP75TA3 PO (11:02)
[2016-11-13] MEDS ORDERED: GABA100C PO (11:02)
[2016-11-13] MEDS ORDERED: CYCL10TA9 PO (11:02)
[2016-11-13] MEDS ORDERED: BUSP15TA3 PO (11:02)
[2016-11-13] MEDS ORDERED: CITA20TA PO (11:02)
--- NOTE | 2016-11-13 12:32 | PROG NOTE ---
[address] [address] PROGRESS NOTE PATIENT: RAJ OSEGUERA : 1960 MR#: [id number] ADMIT: 11/11/2016 JOB ID: [id number] DATE: 11/13/2016 CHIEF COMPLAINT: The patient is doing well. He denies any chest pain or any symptoms. He wants to go home today. Overnight telemetry showed episode of a wide complex tachycardia at about 2:44 a.m. This could represent the ventricular tachycardia, possible 1:1 flutter with aberrancy. However, it is not clear. Patient says he was not symptomatic with it. He has been off his blood pressure medications, and his metoprolol was added back to his medications. PHYSICAL EXAM: Blood pressure is 149/98. He is afebrile. Sats are 96% on room air. General: He is in no acute distress. He denies any symptoms. Head and neck exam: Normocephalic, atraumatic. Heart: Regular rate and rhythm. CURRENT MEDICATIONS: Looks like he was given a dose of metoprolol, but I do not understand why it does not seem to show up on his list anymore. IMPRESSION: I spoke with the patient. He does not want to stay. He says that he has always had problems with high heart rates, and his primary care doctor, Dr. Gomez, is fairly aware of that. He is determined to go home. PLAN: 1. I recommended that he spent at least another night while we observe him to make sure that he does not have any more dangerous arrhythmias. 2. It is still possible the elevated troponin occurred in the setting of a stroke and is related to a stress type cardiomyopathy. However, I would recommend stress testing on this gentleman in the near future to evaluate him further.
--- NOTE | 2016-11-13 13:52 | NUR ---
AMA Patient left AMA at 1310 after psych consult completed. Hospitalist spoke with patient and gave patient discharge instructions. All discharge instructions explained to pt including follow up appointments and medications. IV d/c'd intact. Patient taken down to private vehicle by [facility] in wheelchair to be driven home by father.
--- NOTE | 2016-11-13 14:46 | CONS ---
[address] [address] CONSULTATION REPORT PATIENT: RAJ OSEGUERA : 1960 MR#: [id number] ADMIT: 11/11/2016 JOB ID: [id number] DATE OF SERVICE: 11/13/2016 PSYCHIATRIC CONSULTATION: IDENTIFICATION OF PATIENT: The patient is a 56-year-old male who reportedly is seen at the request of Dr. Resendiz, hospitalist, for capacity evaluation with significant threats of elopement or consideration of discharge against medical advice. The patient reportedly has had a second CVA and evidently underwent a [facility] cognitive examination with scores of 10/30. CHIEF COMPLAINT: "I just want to go back to my home, if I have another stroke, so be it. I understand the risk." HISTORY OF PRESENT ILLNESS: As stated above, the patient is a 56-year-old male who reportedly has had a second CVA and per hospitalist team there was concern of the patient's limited capacities. On interview with the patient, he was initially somewhat anxious on approach. He had evidence of repetitive eye blinking which is more than likely evidence of a chronic motor tic that has been present since multiple sclerosis nurse according to the biologic father. By history, the patient reports that he lives in a home dwelling and has a roommate who helps him pay the property taxes. He reports that he is aware that he had a second stroke and was found by family members and later brought to the emergency department. The patient openly identified that he had a very difficult night last evening. He states that he suffers from chronic pain and struggled with getting comfortable. He openly identified that he has not been taking his medications as a regular basis and that he has been smoking excessively greater than two packs per day. He indicates that he has been given multiple nicotine patches by his family practitioner, Dr. Gomez, and states that he knows that he needs to change his life. He reports that he lives in the home dwelling with his roommate who he has known for greater than 20 years. He identified that his roommate does smoke a lot of marijuana but maintained it to his room. The patient states that he has been clean and sober for approximately eight years, underwent chemical dependency treatment through [facility] approximately eight years prior and transitioned into outpatient interventions for a period of approximately one year at the [facility] in [place]. He reports that he attends at least 1-2 AA meetings per month at this time. He reports that his support system includes his three children from previous marriages. He has a daughter that is a nurse at [employer] for [employer]. He has a son who works in some form of construction and also identified that he lost one son to heroin addiction approximately one year prior. He identified that he has never used substances, that alcohol was his drug. He reports that he is currently retired and that he has suffered from significant injury on the job and has L and I claims and receives support of greater than $4000.00 per month. He reports that his days are spent taking care of his four dogs and having contact with his family members including an uncle that he has breakfast with every morning and lives down the block. He reports that he and his father typically have interaction 1-2 times per week and his father lives in [place]. The patient on contact indicated that he understands the risk factors and further identified that he is prepared to if so be it. He denied any significant limited understanding of the risk factors but simply stated that he just does not want to be in the hospital and that he would prefer to pursue outpatient interventions. His memory appeared to be intact. He was able to recall three separate objects after 5 minute intervals. He did have a clear identification of significant learning difficulties in the past and states that he was diagnosed with dyslexia and receives special education throughout his elementary and middle school years. He did drop out at the 9th grade level status and did not pursue a GED. Throughout the years, he has received interventions for treatment of anxiety and depression and is currently maintained on doses of BuSpar 15 mg b.i.d., Celexa 40 mg daily. He denies any prior interventions of psychiatric hospitalization. He is not currently connected with therapy as support services. There appeared to be no evidence of current factors of depression, but he openly admitted to significant struggles with claustrophobia, panic attacks, and prefers to be in his home setting. PAST MEDICAL HISTORY: Is deferred to medical team. PAST PSYCHIATRIC HISTORY: Substantial for the above information. SOCIAL HISTORY: As noted above. FAMILY HISTORY: Positive for history of depression and anxiety throughout the maternal and paternal family units. DEVELOPMENT HISTORY: As noted above. MENTAL STATUS EXAMINATION: General appearance: The patient was bright, cooperative, interactive. He became tearful in discussing his relationships with his family but very appropriately. His speech was of normal tone, frequency and volume. His mood was neutral. Affect was mildly anxious and elevated. His thought process showed no evidence of racing thoughts, flight of ideas, loose or disconnected thinking. Thought content: He denied any evidence of current suicidal, homicidal ideation. He was alert, oriented to time, place, situation. His memory was intact in the short term, half-way, recent. Insight and judgment are fair. Mini-mental status examination scored 26/30 with prior identification of a [facility] cognitive assessment of 10. ASSESSMENT: AXIS I 1. Panic disorder with agoraphobic features. 2. Chronic motor tic disorder. 3. Major depressive disorder, recurrent, severe, in remission. 4. Alcohol use disorder in remission. AXIS II Deferred. AXIS III Deferred to the medical team. AXIS IV Stressors are noted for recent medical complexity, history of alcohol usage with recovery. AXIS V Global assessment of functioning of current 50. PLAN: 1. Recommendations to release the patient at this time. I do feel that the patient has demonstrated clear capacity and understanding of the medical risk factors associated with a discharge. 2. The patient was encouraged to continue with his current medication regimens as noted. 3. Verification of family support was completed with the father present. Also noted interactions with the daughter will be deferred to the social work team. Per patient report he indicated that the daughter will be moving back into his home dwelling within the next month. 4. Continuation of support services through [facility] worker as noted.
== END 2016-11-13 13:10 | disposition left against medical advice (07) | DRG 65 ==
LOC: SED 11:05 → OBSVTOIN 14:21 → MOC 14:21
PROVIDERS: ADMIT Family Medicine; ATTEND Family Medicine
DX: I63.9 Cerebral infarction, unspecified (principal); F33.40 Major depressive disorder, recurrent, in remission, unspecified; F40.01 Agoraphobia with panic disorder; R40.2142 Coma scale, eyes open, spontaneous, at arrival to emergency department; R40.2362 Coma scale, best motor response, obeys commands, at arrival to emergency department; R40.2242 Coma scale, best verbal response, confused conversation, at arrival to emergency department; I10 Essential (primary) hypertension; E78.00 Pure hypercholesterolemia, unspecified; F17.200 Nicotine dependence, unspecified, uncomplicated; E78.5 Hyperlipidemia, unspecified; G89.4 Chronic pain syndrome; F10.21 Alcohol dependence, in remission; Z86.73 Personal history of transient ischemic attack (TIA), and cerebral infarction without residual deficits